=== PATIENT | male | born 1965 | race Caucasian/White ===

== ENCOUNTER 2016-05-02 09:08 | Emergency (ER) | payer OTHER | END 2016-05-02 11:10 | disposition home or self-care (01) | LOC: ER1 09:08 | DX: J10.1 Influenza due to other identified influenza virus with other respiratory manifestations (principal); J20.9 Acute bronchitis, unspecified; I25.10 Atherosclerotic heart disease of native coronary artery without angina pectoris; I10 Essential (primary) hypertension; F17.200 Nicotine dependence, unspecified, uncomplicated; Z95.5 Presence of coronary angioplasty implant and graft; Z79.899 Other long term (current) drug therapy | CPT/HCPCS: 71020; 81001; 87081; 87880; 99283 ==

== ENCOUNTER 2020-05-02 09:20 | Emergency (ER) | payer BC ==
[~2020-05-02 09:20] MED LIST: AMLODIPINE BESYL5 MG PO; AMOXICILLIN875 MG PO; ASPIRIN CHEWABL81 MG PO; ASPIRIN EC81 MG PO; ATORVASTATIN CA20 MG PO; CARVEDILOL3.125 MG PO; CATAPRES 0.1MG0.1 MG PO; CLOPIDOGREL75 MG PO; COREG 12.5MG12.5 MG PO; CYCLOBENZAPRINE5 MG PO; DULERA 200 MCG8.8 GM INH; ECOTRIN81 MG PO; GLUCOPHAGE 500500 MG GT; HABITROL 14 MG P1 EA TD; HYDROCHLOROTHIA25 MG PO; IBUPROFEN600 MG PO; IMDUR ER TAB 3030 MG PO; IPRAT-ALBUT 0.5-3 ML INH; LEVAQUIN750 MG PO; LISINOPRIL40 MG PO; MEDROL DOSEPAK 24 MG PO; MEDROL4 MG PO; METOPROLOL TART25 MG PO; NORCO 7.5-3251 EACH PO; NORVASC 5 MG TAB5 MG PO; NORVASC10 MG PO; OMNICEF 300 MG300 MG PO; PHENERGAN6.25 MG/1 PO; PREDNISONE50 MG PO; PRINIVIL20 MG PO; PROVENTIL HFA6.7 GM INH; VENTOLIN HFA 66.7 GM INH; ZITHROMAX250 MG PO; ZOLOFT25 MG PO
[2020-05-02 10:18] LABS: HEMOGLOBIN 15.4 gm/dl (14.0-17.5); RED BLOOD COUNT 4.91 M/UL (4.20-5.50); WHITE BLOOD COUNT 12.3 K/UL (4.5-11.0)
[2020-05-02 10:46] LABS: BUN/CREATININE RATIO 19 (0-10)
[2020-05-02] MEDS ORDERED: PREDNISONE20 MG PO (12:44)
[2020-05-02] MEDS ORDERED: DOXYCYCLINE HY100 MG PO (12:44)
== END 2020-05-02 13:00 | disposition home or self-care (01) ==
LOC: ER1 09:20
PROVIDERS: Physician Assistant
DX: J44.1 Chronic obstructive pulmonary disease with (acute) exacerbation (principal); E11.9 Type 2 diabetes mellitus without complications; I10 Essential (primary) hypertension; I25.10 Atherosclerotic heart disease of native coronary artery without angina pectoris; Z20.822 Contact with and (suspected) exposure to COVID-19; E78.5 Hyperlipidemia, unspecified; F17.200 Nicotine dependence, unspecified, uncomplicated
CPT/HCPCS: 0240U; 71045; 80053; 82550; 82553; 83874; 84484; 85025; 87040; 87081; 87880; 93005; 96374; 99284; J1100

== ENCOUNTER 2020-09-26 13:39 | Emergency (ER) | payer BC ==
[~2020-09-26 13:39] MED LIST changes: +DOXYCYCLINE HY100 MG PO; +PREDNISONE20 MG PO
[2020-09-26 14:26] LABS: HEMOGLOBIN 16.8 gm/dl (14.0-17.5); RED BLOOD COUNT 5.15 M/UL (4.20-5.50); WHITE BLOOD COUNT 12.3 K/UL (4.5-11.0)
[2020-09-26 14:39] LABS: BUN/CREATININE RATIO 17 (0-10)
== END 2020-09-26 19:37 | disposition home or self-care (01) ==
LOC: ER1 13:39
PROVIDERS: Physician Assistant Medical
DX: R07.9 Chest pain, unspecified (principal); I25.10 Atherosclerotic heart disease of native coronary artery without angina pectoris; I25.2 Old myocardial infarction; E11.9 Type 2 diabetes mellitus without complications; I10 Essential (primary) hypertension; J44.9 Chronic obstructive pulmonary disease, unspecified; F17.200 Nicotine dependence, unspecified, uncomplicated; Z20.822 Contact with and (suspected) exposure to COVID-19
CPT/HCPCS: 71045; 80053; 82550; 82553; 83874; 84484; 85025; 93005; 99285; U0002

== ENCOUNTER 2020-10-20 08:55 | Emergency (ER) | payer BC ==
[2020-10-20 10:01] LABS: HEMOGLOBIN 15.2 gm/dl (14.0-17.5); RED BLOOD COUNT 4.96 M/UL (4.20-5.50); WHITE BLOOD COUNT 10.2 K/UL (4.5-11.0)
[2020-10-20 10:29] LABS: BUN/CREATININE RATIO 17 (0-10)
[2020-10-20] MEDS ORDERED: CATAPRES 0.1MG0.1 MG PO (13:09)
[2020-10-20 13:34] LABS: BORDETELLA PARAPERTUSSIS Not Detected (Not Detectd); BORDETELLA PERTUSSIS Not Detected (Not Detectd); CHLAMYDIA PNEUMONIAE Not Detected (Not Detectd); CORONAVIRUS HKU1 Not Detected (Not Detectd); CORONAVIRUS NL63 Not Detected (Not Detectd); CORONAVIRUS OC43 Not Detected (Not Detectd); CORONOAVIRUS 229E Not Detected (Not Detectd); HUMAN METAPNEUMOVIRUS Not Detected (Not Detectd); HUMAN RHINOVIRUS/ENTEROVIRUS Not Detected (Not Detectd); INFLUENZA A Not Detected (Not Detectd); INFLUENZA B Not Detected (Not Detectd); MYCOPLASMA PNEUMONIAE Not Detected (Not Detectd); PARAINFLUENZA VIRUS 1 Not Detected (Not Detectd); PARAINFLUENZA VIRUS 2 Not Detected (Not Detectd); PARAINFLUENZA VIRUS 3 Not Detected (Not Detectd); PARAINFLUENZA VIRUS 4 Not Detected (Not Detectd); RESPIRATORY SYNCYTIAL VIRUS Not Detected (Not Detectd)
[2020-10-20 14:32] LABS: SARS-CoV-2 NOT DETECTED (Not Detectd)
== END 2020-10-20 15:15 | disposition home or self-care (01) ==
LOC: ER1 08:55
PROVIDERS: Physician Assistant
DX: R51.9 Headache, unspecified (principal); R53.81 Other malaise; I10 Essential (primary) hypertension; Z20.822 Contact with and (suspected) exposure to COVID-19; I25.10 Atherosclerotic heart disease of native coronary artery without angina pectoris; E11.9 Type 2 diabetes mellitus without complications; E78.5 Hyperlipidemia, unspecified; F17.210 Nicotine dependence, cigarettes, uncomplicated
CPT/HCPCS: 71045; 80053; 82550; 82553; 83874; 84484; 85025; 87633; 93005; 96374; 99284; J0360; U0002

== ENCOUNTER 2020-12-04 12:24 | Emergency (ER) | payer BC ==
[2020-12-04] MEDS ORDERED: AUGMENTIN 875-1 EACH PO (12:59)
== END 2020-12-04 13:10 | disposition home or self-care (01) ==
LOC: ER1 12:24
DX: H66.91 Otitis media, unspecified, right ear (principal); E11.9 Type 2 diabetes mellitus without complications; I10 Essential (primary) hypertension; F17.210 Nicotine dependence, cigarettes, uncomplicated
CPT/HCPCS: 99282

== ENCOUNTER 2021-01-01 08:50 | Emergency (ER) | payer BC ==
[~2021-01-01 08:50] MED LIST changes: +AUGMENTIN 875-1 EACH PO
[2021-01-01 09:34] LABS: HEMOGLOBIN 15.8 gm/dl (14.0-17.5); RED BLOOD COUNT 5.13 M/UL (4.20-5.50)
[2021-01-01 09:42] LABS: BUN/CREATININE RATIO 16 (0-10)
== END 2021-01-01 12:08 | disposition home or self-care (01) ==
LOC: ER1 08:50
PROVIDERS: Physician Assistant
DX: R60.0 Localized edema (principal); E11.9 Type 2 diabetes mellitus without complications; I10 Essential (primary) hypertension; F17.200 Nicotine dependence, unspecified, uncomplicated; Z95.5 Presence of coronary angioplasty implant and graft
CPT/HCPCS: 80053; 85025; 93971; 99284

== ENCOUNTER 2021-01-04 18:36 | Emergency (ER) | payer BC ==
[2021-01-04 20:57] LABS: HEMOGLOBIN 15.3 gm/dl (14.0-17.5); RED BLOOD COUNT 4.77 M/UL (4.20-5.50); WHITE BLOOD COUNT 15.7 K/UL (4.5-11.0)
[2021-01-04 21:16] LABS: BUN/CREATININE RATIO 25 (0-10)
[2021-01-05] MEDS ORDERED: INDOMETHACIN25 MG PO (00:24)
[2021-01-05] MEDS ORDERED: PERCOCET 5/325 T1 EA PO (00:24)
[2021-01-05] MEDS ORDERED: PREDNISONE20 MG PO (00:24)
== END 2021-01-05 01:48 | disposition home or self-care (01) ==
LOC: ER1 18:36
PROVIDERS: Physician Assistant
DX: M79.672 Pain in left foot (principal); J44.9 Chronic obstructive pulmonary disease, unspecified; I51.9 Heart disease, unspecified; F17.210 Nicotine dependence, cigarettes, uncomplicated; E11.9 Type 2 diabetes mellitus without complications
CPT/HCPCS: 73630; 80053; 81001; 84550; 85025; 85652; 86140; 87086; 94664; 99283

== ENCOUNTER 2021-01-25 07:06 | Emergency (ER) | payer BC ==
[~2021-01-25 07:06] MED LIST changes: +INDOMETHACIN25 MG PO; +PERCOCET 5/325 T1 EA PO
[2021-01-25 10:20] LABS: HEMOGLOBIN 14.8 gm/dl (14.0-17.5); RED BLOOD COUNT 4.61 M/UL (4.20-5.50); WHITE BLOOD COUNT 12.4 K/UL (4.5-11.0)
[2021-01-25 10:48] LABS: BUN/CREATININE RATIO 22 (0-10)
[2021-01-25] MEDS ORDERED: AEROCHAMBER1 EA XX (12:41)
[2021-01-25] MEDS ORDERED: PROVENTIL HFA6.7 GM INH (12:41)
== END 2021-01-25 13:05 | disposition home or self-care (01) ==
LOC: ER1 07:06
PROVIDERS: Physician Assistant
DX: R07.89 Other chest pain (principal); R05.9 Cough, unspecified; R09.81 Nasal congestion; E11.9 Type 2 diabetes mellitus without complications; J44.9 Chronic obstructive pulmonary disease, unspecified; F17.200 Nicotine dependence, unspecified, uncomplicated; I11.9 Hypertensive heart disease without heart failure; E66.9 Obesity, unspecified; Z95.5 Presence of coronary angioplasty implant and graft; Z20.822 Contact with and (suspected) exposure to COVID-19
CPT/HCPCS: 71045; 80053; 82550; 82553; 83874; 84484; 85025; 99285; U0002

== ENCOUNTER → 2021-06-06 | Outpatient (CLI) | payer BC ==
[~2021-06-06] MED LIST changes: +AEROCHAMBER1 EA XX
== END ==
LOC: HEART 5 08:03
DX: I25.119 Atherosclerotic heart disease of native coronary artery with unspecified angina pectoris (principal); I10 Essential (primary) hypertension; R06.02 Shortness of breath
CPT/HCPCS: 78452; A9502; J2785